=== PATIENT | male | born 1960 | race Caucasian/White ===

== ENCOUNTER → 2016-03-05 | Day surgery (SDC) | payer OTHER ==
[2016-02-12 09:14] VITALS: Ht 176.5 cm; Wt 131.8 kg
[~2016-03-05] VITALS: Ht 176.5 cm; Wt 131.8 kg
[~2016-03-05] MED LIST: ASPCH81X PO; ATOR-24 PO; CYAN100020 PO; FRS/40 PO; INSDGI SC; LEVO25TA5 PO; METO50TA7 PO; MYCO250C26 PO; NVLG SC; OMEP20CA9 PO; TACR1CAP5 PO
== END | disposition home or self-care (01) ==
LOC: EDSTATUS 10:30 → C.PAT 10:31
PROVIDERS: ATTEND Ophthalmology
DX: H26.9 Unspecified cataract (principal)